=== PATIENT | male | born 1985 ===

== ENCOUNTER 2018-12-16 19:32 | Emergency (ER) | payer SELFPAY ==
--- NOTE | 2018-12-16 19:59 | Emergency Department Report ---
Blank Doc - Documentation Documentation: This is a 33-year-old male that presents with left eye pain. Stated a wood br anch hit eye while working. This initial assessment/diagnostic orders/clinical plan/treatment(s) is/are subject to change based on patient's health status, clinical progression and re- assessment by fellow clinical providers in the ED. Further treatment and workup at subsequent clinical providers discretion. Patient/guardians urged not to elope from the ED as their condition may be serious if not clinically assessed and managed. Initial orders include: 1- Patient sent to [facility] for further evaluation and treatment 2- matthews lamp 3- visual test
[2018-12-16 20:00] VITALS: BP 123/88
[2018-12-16] MEDS ORDERED: FUL-GLO OP ONE ×2 (22:50→22:56)
[2018-12-16] MEDS ORDERED: BSS OU ONE (22:50)
[2018-12-16] MEDS ORDERED: TETRACAINE 0.5% OU ONE (22:51)
[2018-12-16] MEDS ORDERED: TETRACAINE 0.5% ONE (22:56)
--- NOTE | 2018-12-16 23:45 | Emergency Department Report ---
[facility] Chief Complaint: Eye Problems Stated Complaint: LEFT EYE PAIN Time Seen by Provider: 12/16/18 19:58 Side: Left Severity: mild Symptoms: Yes Eye Redness, Yes Eye Pain, No Eye Itching, No Mucous Drainage, No Purulent Drainage, No Blurred Vision, No Preceding URI, No H/O Allergic Rhinitis, No Contact Lens Use, No Trauma, No Fever, No Headache Other History: This is a 33-year-old male presents ED complaining of left eye redness and times yesterday. Patient says he was doing yard work and trimming the hedges when he felt a piece of branch come towards his eye. Patient thinks that he may have gotten some into his left eye. He denies loss of vision, bleeding from the eye, ED Review of Systems ROS: Stated complaint: LEFT EYE PAIN Other details as noted in HPI Constitutional: denies: chills, fever Eyes: denies: eye pain, eye discharge, vision change ENT: denies: ear pain, throat pain Respiratory: denies: cough, shortness of breath, wheezing Cardiovascular: denies: chest pain, palpitations Endocrine: no symptoms reported Gastrointestinal: denies: abdominal pain, nausea, diarrhea Genitourinary: denies: urgency, dysuria Musculoskeletal: denies: back pain, joint swelling, arthralgia Skin: denies: rash, lesions Neurological: denies: headache, weakness, paresthesias Psychiatric: denies: anxiety, depression Hematological/Lymphatic: denies: easy bleeding, easy bruising ED Past Medical Hx - Past Medical History Previous Medical History?: No - Surgical History Past Surgical History?: No - Social History Smoking Status: Current Every Day Smoker Substance Use Type: None - Medications Home Medications: Home Medications Medication Instructions Recorded Confirmed Last Taken Type Ofloxacin 0.3% [Ocuflox 0.3% opth] 1 - 2 drops OP TID #1 bottle 12/16/18 Unknown Rx [facility] Exam - Exam General: Vital signs noted. No distress. Alert and acting appropriately. Eye Exam: Left Injection, Neither Chemosis, Neither Abnormal Pupil, Neither EOMI, Neither Eye Foreign Body, Neither Lid Foreign Body, Neither Mucous Discharge, Neither Purulent Discharge, Neither Fluorescein Uptake (there was no corneal abrasion noted) HEENT: No Nasal Congestion, No Pharyngeal Erythema Remainder of HEENT: Normal Lungs: Yes Clear Lung Sounds, Yes Good Air Exchange, No Wheezes, No Stridor, No Cough, No Nasal Flaring, No Retractions, No Use of Accessory Muscles Exam: PERRLA, vision is intact bilaterally, there was no orbital edema. ED Course Vital Signs 12/16/18 19:58 Temperature 98.3 F Pulse Rate 59 L Respiratory 18 Rate Blood Pressure 123/88 O2 Sat by Pulse 98 Oximetry ED Medical Decision Making - Medical Decision Making 33-year-old male presents with left eye conjunctivitis/fb ED course: matthews lamp test shows no corneal abrasion. discussed this with the patient. Discussed the patient will be going home on antibiotic eyedrops to apply 4-5 times a day I discussed the patient is new or worsening symptoms to return to ED immediately Patient's vital signs are stable he's in no distress. Patient is vision is intact, visual acuity test performed, within normal limits. Discussed the patient to follow up with her primary care physician in 3-5 days. Critical care attestation.: If time is entered above; I have spent that time in minutes in the direct care of this critically ill patient, excluding procedure time. ED Disposition Clinical Impression: Foreign body in eye, Conjunctivitis Disposition: [id number] TO HOME OR SELFCARE Is pt being admited?: No Does the pt Need Aspirin: No Condition: Stable Instructions: Eye Foreign Body (ED), Conjunctivitis (ED) Additional Instructions: Make sure to follow up with the primary care physician as discussed. Take all your medications as you've been prescribed. If you have any worsening symptoms or develop new symptoms please return to ED immediately. Prescriptions: Ofloxacin 0.3% [Ocuflox 0.3% opt] 1 - 2 drops OP TID #1 bottle Referrals: TAMIR SHARP [Primary Care Provider] - 3-5 Days Forms: Accompanied Note, Work/School Release Form(ED) Time of Disposition: 23:55
== END 2018-12-17 00:06 | disposition home or self-care (01) ==
LOC: ED 19:32
DX: T15.92XA Foreign body on external eye, part unspecified, left eye, initial encounter (principal); H10.9 Unspecified conjunctivitis; F17.200 Nicotine dependence, unspecified, uncomplicated; W18.09XA Striking against other object with subsequent fall, initial encounter; Y93.89 Activity, other specified; Y92.69 Other specified industrial and construction area as the place of occurrence of the external cause; Y99.8 Other external cause status
CPT/HCPCS: 99283